=== PATIENT | male | born 1990 | race African-American/Black ===

== ENCOUNTER 2020-02-15 01:14 | Emergency (ER) | payer MEDICAID ==
[~2020-02-15] VITALS: Ht 188 cm; Wt 109.0 kg
[2020-02-15] MEDS ORDERED: HYDROCODONE/ACETAMINOPHEN 5/325MG TABLET PO STA (03:17)
[2020-02-15] MEDS ORDERED: BACITRACIN ZINC OINT UDPKT TOP ONE ×2 (03:30→04:45)
[2020-02-15 07:00] VITALS: BP 130/76
== END 2020-02-15 07:05 | disposition home or self-care (01) ==
LOC: ER 01:39
DX: M79.632 Pain in left forearm (principal); M79.605 Pain in left leg; V49.50XA Passenger injured in collision with unspecified motor vehicles in traffic accident, initial encounter; Y93.89 Activity, other specified; Y92.488 Other paved roadways as the place of occurrence of the external cause; S52.692A Other fracture of lower end of left ulna, initial encounter for closed fracture; X95.9XXA Assault by unspecified firearm discharge, initial encounter; R03.0 Elevated blood-pressure reading, without diagnosis of hypertension; F12.90 Cannabis use, unspecified, uncomplicated
CPT/HCPCS: 29125; 73090; 73552; 99285